=== PATIENT | male | born 1965 | race Caucasian/White ===

== ENCOUNTER 2016-08-31 12:07 | Inpatient (IN) | payer OTHER ==
[2016-08-27 15:10] LABS: ADD DIFF? NO; ADD MORPH? NO; ADD SCAN? NO; ATYPICAL LYMPHOCYTE FLAG 0 (0-99); FRAGMENT RBC FLAG 0 (0-99); HEMATOCRIT 35.9 % (40.0-51.0); LEFT SHIFT FLG 0 (0-99); LIPEMIA HEMOLYSIS FLAG 80 (0-99); MEAN CELL HEMOGLOBIN 29.8 pg (27.9-34.1); MEAN CELL HEMOGLOBIN CONCENTR. 33.4 g/dL (32.4-36.7); MEAN CELL VOLUME 89.1 fL (81.5-99.8); MEAN PLATELET VOLUME 10.1 fL (8.7-11.7); PLATELET CLUMPS FLAG 0 (0-99); PLATELET COUNT 67 10^3/uL (150-400); RED BLOOD CELL COUNT 4.03 10^6/uL (4.40-6.38); RED CELL DISTRIBUTION WIDTH 13.7 % (11.5-15.2)
[2016-08-27 15:19] LABS: INR 1.27 (0.83-1.16); PROTIME(PATIENT) 15.9 SEC (12.0-15.0)
[2016-08-27 15:20] LABS: ALANINE AMINOTRANSFERASE 34 IU/L (21-72); ALBUMIN 3.6 g/dL (3.5-5.0); ALKALINE PHOSPHATASE 62 IU/L (38-126); ANION GAP 12 mEq/L (8-16); ASPARTATE AMINOTRANSFERASE 32 IU/L (17-59); BILIRUBIN,TOTAL 1.2 mg/dL (0.1-1.4); CALCIUM 9.1 mg/dL (8.5-10.4); CARBON DIOXIDE 23 mEq/l (22-31); CHLORIDE 109 mEq/L (97-110); CREATININE 1.2 mg/dL (0.7-1.3); GLOMERULAR FILTRATION RATE > 60; GLUCOSE 101 mg/dL (70-100); POTASSIUM 4.1 mEq/L (3.5-5.2); SODIUM 144 mEq/L (134-144); TOTAL PROTEIN 6.3 g/dL (6.3-8.2)
[~2016-08-31 12:07] MED LIST: ROPIVACAINE 0.2% 80 MG, EPINEPHrine 0.2 MG, KETOROLAC TROMETHAMINE 30 MG in BAG 0 ML IU ONE; TRANEXAMIC ACID 3,000 MG in NS 50 ML IRR ONE; TRANEXAMIC ACID 3,000 MG/50 ML BAG IRR ONE
--- NOTE | 2016-08-31 12:18 | PDHPUP ---
History & Physical Update H&P update statement: This history and physical update is based on an assessment of the patient which was completed after admission or registration (within 24 hours), but prior to the surgery/procedure. H&P update: H&P reviewed & patient examined, no change in patient's condition since H&P completed
[2016-08-31] MEDS ORDERED: FAMOTIDINE 20 MG TAB PO ONE (12:46)
[2016-08-31] MEDS ORDERED: POVIDONE-IODINE 20 ML in SODIUM CL IRRIG SOLUTION 500 ML IRR ONE (12:46)
[2016-08-31] MEDS ORDERED: ceFAZolin 2 GM/DEXTROSE 100 ML IV ONE (12:46)
[2016-08-31] MEDS ORDERED: DEXAMETHASONE 4 MG/ML VIAL IVP ONE (12:46)
[2016-08-31] MEDS ORDERED: VANCOMYCIN 1.5 GM in D5W 250 ML IV ONE (13:00)
--- NOTE | 2016-08-31 13:41 | PDANEPAE ---
ANE History of Present Illness 51 yo M here for R LAUREN ANE Past Medical History - Cardiovascular History Hx Hypertension: No - Pulmonary History Hx Asthma/Reactive Airway Disease: Yes - Liver History Hx Hepatic Disorders: Yes Hepatic History Comment: aEtOH induced heppatitis, remote - Cancer History Cancer History Comment: Pancytopenia ANE Review of Systems Review of systems is: negative - Exercise capacity Exercise capacity: >=4 METS ANE Patient History - Allergies Allergies/Adverse Reactions: No Allergies [NKDA] Allergy (Verified 08/30/16 12:23) - Home Medications Home medications: home medication list seen and reviewed - NPO status NPO Since - Liquids (Date): 08/31/16 NPO Since - Liquids (Time): 10:55 NPO Since - Solids (Date): 08/30/16 NPO Since - Solids (Time): 23:55 - Anes Hx Anes Hx: no prior problems - Smoking Hx Smoking Status: Never smoked - Alcohol Use Alcohol Use: None - Family Anes Hx Family Anes Hx: none ANE Labs/Vital Signs - Labs Result Diagrams: 08/27/16 14:25 08/27/16 14:55 - Vital Signs Blood Pressure: 105/77 Heart Rate: 55 Respiratory Rate: 16 O2 Sat (%): 95 ANE Physical Exam - Airway Neck exam: FROM Mallampati Score: Class 2 Mouth exam: normal dental/mouth exam Mouth image: 1 - missing 2 - missing - Pulmonary Pulmonary: no respiratory distress, clear to auscultation - Cardiovascular Cardiovascular: regular rate and rhythym, no murmur, rub, or gallop - ASA Status ASA Status: III
[2016-08-31] MEDS ORDERED: MIDAZOLAM 2 MG/2 ML VIAL IVP ONE (13:46)
[2016-08-31] MEDS ORDERED: MIDAZOLAM 2 MG/2 ML VIAL ONE (13:48)
[2016-08-31] MEDS ORDERED: PROPOFOL 200 MG/20 ML VIAL ONE ×2 (13:53)
[2016-08-31] MEDS ORDERED: fentaNYL 100 MCG/2 ML INJ ONE ×3 (13:53→16:11)
[2016-08-31] MEDS ORDERED: LR 1,000 ML IV ONE (14:07)
[2016-08-31] MEDS ORDERED: LIDOCAINE 1% 2 ML INJ ID PRN (14:07)
[2016-08-31] MEDS ORDERED: LIDOCAINE 2% 5 ML SDV ONE (14:14)
[2016-08-31] MEDS ORDERED: DEXAMETHASONE 4 MG/ML VIAL ONE (14:14)
[2016-08-31] MEDS ORDERED: ONDANSETRON 4 MG/2 ML VIAL ONE (14:14)
[2016-08-31] MEDS ORDERED: KETAMINE 100 MG/10 ML SYR ONE (14:33)
[2016-08-31] MEDS ORDERED: PROMETHAZINE HCL 25 MG SUPPR PR PRN (14:38)
[2016-08-31] MEDS ORDERED: TEMAZEPAM 15 MG CAP PO PRN (14:38)
[2016-08-31] MEDS ORDERED: PROMETHAZINE HCL 25 MG/ML INJ IVP PRN ×2 (14:38→14:48)
[2016-08-31] MEDS ORDERED: MAGNESIUM HYDROXIDE 30 ML UDCUP PO PRN (14:38)
[2016-08-31] MEDS ORDERED: PHARMACY PAIN CONSULT 1 EA MISC PRN (14:38)
[2016-08-31] MEDS ORDERED: diphenhydrAMINE 25 MG CAP PO PRN (14:38)
[2016-08-31] MEDS ORDERED: METOCLOPRAMIDE 10 MG/2 ML VIAL IVP PRN (14:38)
[2016-08-31] MEDS ORDERED: DIPHENOXYLATE/ATROPINE LOMOTIL 1 TAB PO PRN (14:38)
[2016-08-31] MEDS ORDERED: LACTULOSE 20 GM/30 ML UDCUP PO PRN (14:38)
[2016-08-31] MEDS ORDERED: POLYETHYLENE GLYCOL 3350 17 GM PKT PO PRN (14:38)
[2016-08-31] MEDS ORDERED: ONDANSETRON DISINTEGRATING 4 MG TAB PO PRN (14:38)
[2016-08-31] MEDS ORDERED: BISACODYL 10 MG SUPP PR PRN (14:38)
[2016-08-31] MEDS ORDERED: ONDANSETRON 4 MG/2 ML VIAL IVP PRN ×2 (14:38→14:48)
[2016-08-31] MEDS ORDERED: HYDROmorphONE/DILAUDID 2 MG/ML INJ ONE (14:42)
[2016-08-31] MEDS ORDERED: NALOXONE HCL 0.4 MG/ML INJ IVP PRN (14:48)
[2016-08-31] MEDS ORDERED: fentaNYL 100 MCG/2 ML INJ IVP PRN (14:48)
[2016-08-31] MEDS ORDERED: HYDROmorphONE/DILAUDID 1 MG/ML SYR IVP PRN (14:48)
[2016-08-31] MEDS ORDERED: LR 1,000 ML IV SCH (15:00)
[2016-08-31 15:24] LABS: % IMMATURE GRANULYOCYTES 0.9 % (0.0-1.1); ABSOLUTE IMMATURE GRANULOCYTES 0.05 10^3/uL (0.00-0.10); ADD DIFF? NO; ADD MORPH? NO; ADD SCAN? NO; ATYPICAL LYMPHOCYTE FLAG 10 (0-99); FRAGMENT RBC FLAG 0 (0-99); HEMATOCRIT 34.5 % (40.0-51.0); HEMOGLOBIN 11.8 g/dL (13.7-17.5); LEFT SHIFT FLG 0 (0-99); LIPEMIA HEMOLYSIS FLAG 90 (0-99); MEAN CELL HEMOGLOBIN 29.5 pg (27.9-34.1); MEAN CELL HEMOGLOBIN CONCENTR. 34.2 g/dL (32.4-36.7); MEAN CELL VOLUME 86.3 fL (81.5-99.8); MEAN PLATELET VOLUME 10.5 fL (8.7-11.7); PLATELET CLUMPS FLAG 0 (0-99); PLATELET COUNT 83 10^3/uL (150-400); RED CELL DISTRIBUTION WIDTH 13.8 % (11.5-15.2)
--- NOTE | 2016-08-31 15:28 | POSTOPPROG ---
Post Op Note Date of Operation: 08/31/16 Surgeon: Heidi Hutton Director Client: Debra Hutton PAc Anesthesiologist: Tiat Anesthesia: Spinal Pre-op Diagnosis: R hip DJD Post-op Diagnosis: same Indication: Pain Procedure: R LAUREN Findings: DJD hip Inf/Abcess present in the surg proc area at time of surgery?: No EBL: 100-500
[2016-08-31] MEDS ORDERED: TRANEXAMIC ACID 1,000 MG/NS 50 ML *IV IV ONE (15:30)
[2016-08-31] MEDS ORDERED: HYDROmorphONE/DILAUDID 1 MG/ML SYR ONE ×2 (15:48→16:11)
[2016-08-31] MEDS: HYDROmorphONE/DILAUDID 1 MG/ML SYR IVP PRN ×5 (15:53→17:17)
[2016-08-31] MEDS: fentaNYL 100 MCG/2 ML INJ IVP PRN ×4 (15:57→16:43)
--- NOTE | 2016-08-31 15:59 | POSTANESTH ---
Post Anesthetic Evaluation Cardiovascular Status: Normal, Stable, Similar to Pre-Op Cond Respiratory Status: Normal, Stable, Similar to Pre-op Cond. Level of Consciousness/Mental Status: Can Participate in Eval, Alert and Oriented Pain Control: Adequate, Prn Tx Ordered Nausea/Vomiting Control: Adequate, Prn Tx Ordered Complications Possibly Related to Anesthesia: None Noted
[2016-08-31] MEDS: oxyCODONE IR 5 MG TAB PO PRN ×2 (18:15→20:57)
[2016-08-31] MEDS: CYCLOBENZAPRINE 10 MG TAB PO PRN (18:15)
[2016-08-31 19:56] VITALS: TEMP 98.5
[2016-08-31] MEDS: FAMOTIDINE 20 MG TAB PO SCH (20:58)
[2016-08-31] MEDS: ASPIRIN 325 MG TAB PO SCH (20:58)
[2016-08-31] MEDS: SENNOSIDES/DOCUSATE SODIUM TAB PO SCH (20:59)
[2016-08-31] MEDS: ceFAZolin 2 GM/DEXTROSE 100 ML IV SCH (21:00)
[2016-09-01] MEDS: oxyCODONE IR 5 MG TAB PO PRN ×3 (02:04→10:56)
[2016-09-01] MEDS: CYCLOBENZAPRINE 10 MG TAB PO PRN (02:04)
[2016-09-01 04:46] LABS: HEMOGLOBIN 10.4 g/dL (13.7-17.5); MEAN CELL HEMOGLOBIN 29.1 pg (27.9-34.1); MEAN CELL HEMOGLOBIN CONCENTR. 33.5 g/dL (32.4-36.7); MEAN CELL VOLUME 86.8 fL (81.5-99.8); RED BLOOD CELL COUNT 3.57 10^6/uL (4.40-6.38); RED CELL DISTRIBUTION WIDTH 13.4 % (11.5-15.2)
[2016-09-01 04:55] LABS: INR 1.3 (0.83-1.16); PROTIME(PATIENT) 16.2 SEC (12.0-15.0)
[2016-09-01 04:58] LABS: ALANINE AMINOTRANSFERASE 33 IU/L (21-72); ALKALINE PHOSPHATASE 55 IU/L (38-126); ANION GAP 11 mEq/L (8-16); ASPARTATE AMINOTRANSFERASE 35 IU/L (17-59); BILIRUBIN,TOTAL 0.9 mg/dL (0.1-1.4); CALCIUM 8.1 mg/dL (8.5-10.4); CARBON DIOXIDE 22 mEq/l (22-31); CHLORIDE 104 mEq/L (97-110); CREATININE 1.4 mg/dL (0.7-1.3); GLOMERULAR FILTRATION RATE 54; GLUCOSE 197 mg/dL (70-100); POTASSIUM 4.3 mEq/L (3.5-5.2); SODIUM 137 mEq/L (134-144); TOTAL PROTEIN 5.5 g/dL (6.3-8.2)
[2016-09-01] MEDS: ceFAZolin 2 GM/DEXTROSE 100 ML IV SCH (05:30)
[2016-09-01 07:48] VITALS: BP 108/60; PULSE 67; RESP 14; O2SAT 93
[2016-09-01] MEDS: SENNOSIDES/DOCUSATE SODIUM TAB PO SCH (08:47)
[2016-09-01] MEDS: FAMOTIDINE 20 MG TAB PO SCH (08:47)
[2016-09-01] MEDS: ASPIRIN 325 MG TAB PO SCH (08:47)
[2016-09-01] MEDS ORDERED: traZODone 50 MG TAB PO PRN (08:59)
[2016-09-01] MEDS ORDERED: TIMOLOL MALEATE 5 MG PO SCH (09:00)
[2016-09-01] MEDS ORDERED: FUROSEMIDE 20 MG TAB PO SCH (09:00)
[2016-09-01] MEDS ORDERED: RIFAXIMIN 550 MG TAB PO SCH (09:00)
[2016-09-01] MEDS ORDERED: GABAPENTIN 300 MG CAP PO SCH ×2 (09:00→21:00)
--- NOTE | 2016-09-01 10:42 | SOAPPROG ---
SOAP Progress Note Assessment/Plan: Assessment: Patient is doing well POD 1 s/p R LAUREN Pain management: pain is well controlled on oral pain meds. VTE ppx: recommend aspirin daily for 3 weeks, cont MERRY and SCDs Anemia: level is expected initially postop. Asymptomatic. Continue to monitor hepatitis: INR today 1.3, PLT stable D/c planning: d/c to home today pending release from PT Plan: 09/01/16 10:40 Subjective: Franki is doing well today, denies SOB, chest pain and N/V. pleased with pain level Objective: Vital Signs Temp Pulse Resp BP Pulse Ox 36.9 C 67 14 108/60 93 09/01/16 04:00 09/01/16 07:48 09/01/16 07:48 09/01/16 07:48 09/01/16 07:48 Laboratory Results 09/01/16 04:15 09/01/16 04:15 08/31/16 09/01/16 09/02/16 05:59 05:59 05:59 Intake Total 2900 100 Output Total 2100 675 Balance 800 -575 PT 16.2 SEC (12.0-15.0) H 09/01/16 04:15 INR 1.30 (0.83-1.16) H 09/01/16 04:15 RLE: incision dressing is clean and dry, NVI, +pf/df ICD10 Worksheet Patient Problems: Problems Problem Status Onset Primary localized osteoarthritis of right hip Acute
--- NOTE | 2016-09-02 12:51 | GOP ---
[f rep st] OPERATIVE REPORT DATE OF OPERATION: 08/31/2016 SURGEON: Matt Hutton MD HEAD STRENGTH AND CONDITIONING COACH: EDDIE Chester ANESTHESIA: Spinal. PREOPERATIVE DIAGNOSIS: Right hip osteoarthritis. POSTOPERATIVE DIAGNOSIS: Right hip osteoarthritis. PROCEDURE PERFORMED: Right total hip arthroplasty with x-ray. FINDINGS: ESTIMATED BLOOD LOSS: 500 cc. INDICATIONS: The patient has progressively worsening arthritis of the hip which has failed medical management. The patient understands the treatment option including continued non-operative care and has selected surgical intervention. The patient has decided to undergo total hip arthroplasty via th e direct anterior approach understanding the risks of the procedure including, but not limited to, n eurovascular injury, infection, persistent pain, component wear and loosening, deep venous thrombosi s, pulmonary embolism, limb length inequality (including dislocation), and intraoperative fractures. DESCRIPTION OF PROCEDURE: After proper identification of the patient including verification and mar leena the surgical site, the patient was brought to the operating room and placed in the supine posit ion. All bony prominences were well padded. Anesthesia was induced without complication and intraven ous prophylactic antibiotics were administered prior to skin incision. The operative leg was placed in the Trumpf Arch table extension and the well leg in a Yellofin leg h older. The patient was prepped and draped in the usual sterile fashion. The C-arm was draped for int ra-operative fluoroscopy to check acetabular position, femoral component position including leg oly th and femoral offset. Attention was then drawn to surgical exposure of the hip. An incision was made with a #10 Bard Willow r blade starting 3 cm lateral and 3 cm distal to the anterior superior iliac spine measuring 8-10 cm and coursing distally toward the greater trochanter. The skin and subcutaneous tissues were divided sharply down to the fascia jacque. The fascia jacque was incised in line with the skin incision exposin g the underlying tensor fascia jacque muscle. The muscle was bluntly elevated from the fascia and the first extracapsular Cobra retractor was placed laterally at the junction of the superior femoral nec k and greater trochanter. The lateral femoral circumflex vessels were identified, cauterized, and di vided with the Aquamantys bipolar cautery. The deep investing fascia of the TFL was divided to allow proper mobilization of the muscle preventing damage during the retraction. The reflected head of th e rectus femoris muscle was elevated off the anterior hip capsule and a medial Cobra retractor was p laced just proximal to the lesser trochanter. The anterior capsulotomy was made sharply from the superolateral acetabulum to the saddle junction o f the superior femoral neck and greater trochanter, then coursing inferomedial towards the lesser tr ochanter. The retractors were then placed in the intracapsular position for femoral neck osteotomy. Corresponding to pre-operative templating, the osteotomy was made with the oscillating saw carefully protecting the greater trochanter and soft tissues. The femoral head was removed from the acetabulu m with a corkscrew and confirmed to be severely arthritic with exposed bone, deformity and osteophyt es. Similar findings were confirmed in the acetabulum. The Arch table extension was then placed in 4 0 degrees external rotation. Attention was then drawn to the acetabular preparation. After placement of the anterior and posterio r Cobra retractors outside the labrum and intracapsular, the circumferential labrum was removed glen ply. The foveal contents were then removed and hemostasis obtained with cautery. The first reamer selected was sized using the removed femoral head. Reaming began with medialization and then commenced in 2 mm increments at 45 degrees of abduction and 15 degrees of anteversion usin g fluoroscopic navigation. Reaming ceased 1 mm less than the definitive acetabular component and cor responded to the pre-operative templating. The final acetabular component was inserted using fluoros copy to achieve proper orientation yielding excellent purchase and stability in the acetabulum. The final acetabular liner was then placed and its seating confirmed. Attention was then turned to the femur. The Arch table extension was placed in extension and adducti on, delivering the osteotomized femoral neck into the wound. A 2-pronged femoral elevator was placed at the calcar and another at the tip of the greater trochanter. The posterolateral capsule was rele ased with cautery allowing mobilization of the femur lateral and anterior for preparation. The exter nal rotators were visualized and preserved. A curette and rongeur were used to open the starting poi nt for broaching. Serial broaching started with the #0 broach and ended with the broach that exhibit ed excellent fit in the proximal femur. A change in pitch during mallet strikes was accompanied by t he inability to advance the broach any further. The trial reduction was performed and fluoroscopic n avigation was utilized to check limb length. Adjustments were made to equalize limb length according ly. After the final trials were accepted they were removed and the wound was copiously lavaged. The femo ral component was seated to the same depth as the final broach and the femoral head was impacted ont o the clean trunnion. The hip was then reduced for the final time and once more fluoroscopy was used to check that limb length equality was achieved. The wound was irrigated and closed in layers, the fascia jacque with 2-0 Quill, the subcutaneous tissu e with 2-0 Quill, and the skin with Dermabond. Sterile dressings were applied. Final sharps and spon ge counts were accurate. The patient was then transferred to a hospital bed and brought to the [facility] room in stable condition. IMPLANTS: Accolade II, size 7 at 127. Acetabular component 60 mm Tritanium. The liner is a Trident x3, 36 mm, and the head is a Biolox Delta 36 mm -2.5. /[id number]/MODL
--- NOTE | 2016-09-02 13:01 | GDS ---
[f rep st] DISCHARGE SUMMARY ADMISSION DIAGNOSIS: Right hip osteoarthritis. DISCHARGE DIAGNOSIS: Right hip osteoarthritis. PROCEDURE: Right total hip arthroplasty. VTE PROPHYLAXIS: Aspirin recommended for 3 weeks daily. BRIEF DESCRIPTION OF HOSPITAL STAY: Patient was admitted for an elective joint arthroplasty. The p atient tolerated the procedure well and has passed physical therapy. The patient was given appropri ate antibiotic prophylaxis and venous thromboembolism prophylaxis. The patient's pain was well cont rolled on oral pain medication, patient was holding down food, and had urinated. Decision was made to discharge the patient. The patient was given post-operative prescriptions pre-operatively. PLAN: Please follow up as scheduled at Dr. Hutton's office in 3 weeks. /[id number]/MODL
== END 2016-09-01 11:59 | disposition home or self-care (01) | DRG 470 ==
LOC: F3N 12:07
PROVIDERS: ADMIT Orthopaedic Surgery; ATTEND Orthopaedic Surgery
PROC: 0SR904Z Replacement of Right Hip Joint with Ceramic on Polyethylene Synthetic Substitute, Open Approach (ICD-10-PCS; principal; 2016-08-31 14:15)
DX: M16.11 Unilateral primary osteoarthritis, right hip (principal); Z87.891 Personal history of nicotine dependence
CPT/HCPCS: 97161-GP; 97165-GO; G0103; G8978-GP-CI; G8979-GP-CI; G8980-GP-CI; G8987-GO-CI; G8989-GO-CH; J0171; J0690; J1100; J1170; J1885; J2250; J2405; J2704; J2795; J3010; J3370

== ENCOUNTER 2016-12-23 11:15 | Emergency (ER) | payer OTHER, MEDICAID ==
[2016-12-23] MEDS ORDERED: predniSONE 20 MG TAB PO ONE (11:44)
[2016-12-23] MEDS ORDERED: FAMOTIDINE 20 MG TAB PO ONE (11:44)
[2016-12-23] MEDS ORDERED: diphenhydrAMINE 25 MG CAP PO ONE (11:44)
--- NOTE | 2016-12-23 11:48 | EDPHY ---
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 He notes prior history of similar a while ago when new scribe's were introduced to the emergency department, possibly related to detergent and/or starch material. Denies dyspnea. He does feel slight itching sensation his mouth. No wheezing. No abdominal pain. No nausea or vomiting. 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 Appears nontoxic 2) HEAD: Normocephalic, atraumatic 3) HEENT: Pupils equal, round, reactive to light bilaterally. Sclera anicteric. Nasopharynx, oropharynx, clear, no lesions. No tonsillar enlargement or exudate 4) NECK: Full range of motion, no meningeal signs. 5) LUNGS: Clear auscultation bilaterally, no wheezes, no rhonchi, no retractions. 6) HEART: Regular rate and rhythm, no murmur, no heave, no gallop. 7) ABDOMEN: No guarding, no rebound, no focal tenderness, negative McBurney's, negative Merchant's, negative Rovsing's, negative peritoneal sign, 8) MUSCULOSKELETAL: bilateral antecubital fossa erythematous, excoriated M 9) BACK: mildly erythematous excoriated rash with no signs of infection. 10) SKIN: No rash, no petechiae. 11) Psychiatric: Patient is oriented X 3, there is no agitation. DIFFERENTIAL DIAGNOSIS: [in no particular order including but not limited to contact dermatitis, cellulitis, anaphylaxis Smoking Status: Never smoked Constitutional: Initial Vital Signs Temperature (C) 36.5 C 12/23/16 11:21 Heart Rate 76 12/23/16 11:21 Respiratory Rate 18 12/23/16 11:21 Blood Pressure 117/75 12/23/16 11:21 O2 Sat (%) 95 12/23/16 11:21 O2 Delivery Mode Room Air Allergies/Adverse Reactions: latex Allergy (Mild, Verified 12/23/16 11:17) dermatitis ampicillin Allergy (Verified 08/31/16 18:50) Other-Enter Comments Home Medications: Medication Instructions Recorded Furosemide [Lasix 20 MG (*)] 60 mg PO BIDDIUR 08/31/16 Gabapentin [Neurontin 300 MG (*)] 900 mg PO DAILY 08/31/16 Melatonin [Melatonin 3 MG (*)] 3 mg PO HS 08/31/16 Rifaximin [Xifaxan] 550 mg PO DAILY 08/31/16 Timolol Maleate 5 mg PO DAILY 08/31/16 traZODone [traZODONE 50MG (*)] 50 mg PO HS PRN 08/31/16 MDM/Departure - MDM ED Course/Re-evaluation: Care of patient under supervision of secondary supervising physician Dr Santiago . Doubt anaphylaxis. - Depart Disposition: Home, Routine, Self-Care Clinical Impression: Urticaria Contact dermatitis Qualifiers: Contact dermatitis type: allergic Contact dermatitis trigger: unspecified trigger Qualified Code(s): L23.9 - Allergic contact dermatitis, unspecified cause Condition: Good Instructions: Contact Dermatitis (ED) Additional Instructions: Try to avoid exposure to allergens which may cause reaction. Referrals: Follow-up, with employee health in 2 days [Other] - As per Instructions
[2016-12-23 12:47] VITALS: BP 113/78; PULSE 67; RESP 16; TEMP 97.9; O2SAT 97
== END 2016-12-23 12:49 | disposition home or self-care (01) ==
DX: L23.9 Allergic contact dermatitis, unspecified cause (principal); Z91.040 Latex allergy status